=== PATIENT | male | born 1970 | race Caucasian/White ===

== ENCOUNTER 2018-06-18 15:18 | Outpatient (CLI) | payer OTHER | END 2018-06-18 15:19 | disposition home or self-care (01) | LOC: DTY/OP 15:18 | PROVIDERS: ATTEND Family Medicine | DX: E66.01 Morbid (severe) obesity due to excess calories (principal); Z68.42 Body mass index [BMI] 45.0-49.9, adult | CPT/HCPCS: 97802 ==

== ENCOUNTER 2018-07-09 09:08 | Outpatient (CLI) | payer OTHER ==
[2018-07-09 10:21] LABS: ALT (SGPT) 146 U/L (8-55); AST (SGOT) 139 U/L (5-34); Albumin 4.3 g/dL (3.5-5.0); Alkaline Phosphatase 86 U/L (40-150); Anion Gap 16 mmol/L (10-20); BUN (Urea Nitrogen) 17 mg/dL (8.9-20.6); Bilirubin, Direct 0.4 mg/dL (0.1-0.3); Calc. Creatinine Clearance 0 mL/min (70-130); Carbon Dioxide 22 mmol/L (22-29); Chloride 98 mmol/L (98-107); Estimated GFR-MDRD 83; Globulin 4.7 g/dL (2.4-3.5); Glucose 154 mg/dL (70-105); Potassium 3.9 mmol/L (3.5-5.1); Sodium 132 mmol/L (136-145)
[2018-07-09 10:24] LABS: #Basophils 0.1 thou/uL (0.0-0.2); #Eosinphils 0.1 thou/uL (0.0-0.7); #Lymphocytes 2.6 thou/uL (1.20-3.40); #Monocytes 0.6 thou/uL (0.11-0.59); #Neutrophils 6.3 thou/uL (1.40-6.50); %Basophils 1.2 % (0.0-1.0); %Lymphocytes 26.6 % (21.0-51.0); %Monocytes 5.8 % (0.0-10.0); %Neutrophils 65.4 % (42.0-75.0); Hemoglobin 18.1 g/dL (14.0-18.0); Mean Corpuscular HGB CONC 34.5 g/dL (32.0-36.0); Mean Corpuscular Hemoglobin 30.3 pg (27.0-31.0); Mean Corpuscular Volume 87.9 fL (78.0-98.0); Platelet Count 200 thou/uL (130-400); RBC Distribution Width 12.6 % (11.5-14.5); Red Blood Cell (RBC) Count 5.98 mill/uL (4.70-6.10); White Blood Cell (WBC) Count 9.6 thou/uL (4.8-10.8)
[2018-07-09 10:41] LABS: Hemoglobin A1c 6.9 % (4.0-6.0)
--- NOTE | 2018-07-09 14:30 | RAD ---
2 VIEWS CHEST: Date: 07/09/18 COMPARISON: None. HISTORY: Preoperative patient. FINDINGS: Frontal and lateral imaging of the chest demonstrates no pneumothorax, pleural fluid, focal consolida tion, or alveolar edema. No acute osseous abnormality identified. There is mild degenerative change involving the mid thoracic spine with disc space narrowing and ante rior osteophyte formation. IMPRESSION: No acute findings. POS: [facility]
== END 2018-07-09 09:09 | disposition home or self-care (01) ==
LOC: LABBT 09:08
PROVIDERS: ATTEND Surgery
DX: Z01.818 Encounter for other preprocedural examination (principal); E66.01 Morbid (severe) obesity due to excess calories
CPT/HCPCS: 71046; 80053; 80076; 83036; 85025; 93005; 93010

== ENCOUNTER 2018-07-09 09:30 | Inpatient (IN) | payer OTHER ==
[2018-07-09 09:40] VITALS: BMI 46.2
[2018-07-20] MEDS ORDERED: Sterile Water 10 ML VIAL ONE (08:03)
[2018-07-20] MEDS ORDERED: Dexamethasone 20 MG/5 ML VIAL ONE (08:03)
[2018-07-20] MEDS ORDERED: Glycopyrrolate 0.2 MG/ML 5 ML SYRINGE ONE (08:03)
[2018-07-20] MEDS ORDERED: Lidocaine 1% PF 5 ML VIAL ONE (08:03)
[2018-07-20] MEDS ORDERED: Ondansetron PF 4 MG/2 ML Vial ONE (08:03)
[2018-07-20] MEDS ORDERED: PROPOFOL 200 MG/20 ML VIAL ONE (08:03)
[2018-07-20] MEDS ORDERED: Ketorolac Tromethamine 30 MG/ML VIAL ONE (08:03)
[2018-07-20] MEDS ORDERED: CEFAZOLIN 1 GM VIAL ONE (08:03)
[2018-07-20] MEDS ORDERED: Metoclopramide HCl 10 MG/2 ML VIAL ONE (08:03)
[2018-07-20] MEDS ORDERED: ePHEDrine/0.9% NaCl/PF SYRINGE 50 mg/10 ml ONE (08:03)
[2018-07-20] MEDS ORDERED: CEFAZOLIN 2 GM/50 ML BAG ONE (11:46)
[2018-07-20] MEDS ORDERED: Heparin 5,000 UNITS/ML VIAL ONE (11:47)
[2018-07-20] MEDS ORDERED: Bupivacaine/Epinephrine 0.25% 30 ML VIAL ONE (11:53)
[2018-07-20] MEDS ORDERED: Famotidine/PF 20 mg/2ml Vial ONE (11:59)
[2018-07-20] MEDS ORDERED: Fentanyl 100 MCG/2 ML VIAL ONE ×2 (12:00→13:56)
[2018-07-20] MEDS ORDERED: Fentanyl 250 MCG/5 ML VIAL ONE (12:00)
[2018-07-20] MEDS ORDERED: HYDROmorphone 2 MG/ML VIAL SLOW IVP PRN (13:13)
[2018-07-20] MEDS ORDERED: Meperidine HCl/PF 25 MG/ML VIAL SLOW IVP PRN (13:13)
[2018-07-20] MEDS ORDERED: Promethazine HCl 25 MG/ML VIAL IM PRN ×3 (13:13→15:38)
[2018-07-20] MEDS ORDERED: Ondansetron HCl/PF 4 MG/2 ML Vial IVP PRN (13:13)
[2018-07-20] MEDS ORDERED: Promethazine HCl 25 MG/ML VIAL SLOW IVP PRN (13:13)
[2018-07-20] MEDS ORDERED: fentaNYL Citrate/PF 2,000 MCG in Sodium Chloride 0.9% 60 ML IV PRN (14:03)
[2018-07-20] MEDS ORDERED: diphenhydrAMINE 50 MG/ML VIAL IVP PRN ×2 (14:03→15:38)
[2018-07-20] MEDS ORDERED: Zolpidem Tartrate 5 MG TAB PO PRN (14:03)
[2018-07-20] MEDS ORDERED: diphenhydrAMINE 25 MG CAP PO PRN (14:03)
[2018-07-20] MEDS ORDERED: diphenhydrAMINE 50 MG/ML VIAL IM PRN (14:03)
[2018-07-20] MEDS ORDERED: Naloxone HCl 0.4 mg/ml Vial IV PRN (14:03)
[2018-07-20] MEDS ORDERED: Ondansetron PF 4 MG/2 ML Vial IVP PRN ×2 (14:03→15:38)
[2018-07-20] MEDS ORDERED: Ketorolac Tromethamine 30 MG/ML VIAL IVP PRN (14:03)
[2018-07-20] MEDS ORDERED: Communication Order-Pharmacy FS SCH (14:15)
[2018-07-20] MEDS ORDERED: Hydrocodone-Acetamin 15 ML UDCUP PO PRN (15:38)
[2018-07-20] MEDS ORDERED: Dextrose 50% Abboject 50 ML SYRINGE SLOW IVP PRN ×2 (15:38)
[2018-07-20] MEDS ORDERED: hydrALAZINE 20 MG/ML VIAL SLOW IVP PRN (15:38)
[2018-07-20] MEDS ORDERED: HumaLOG 300 UNITS/3 ML VIAL SC PRN (15:38)
[2018-07-20] MEDS ORDERED: Dextrose 5% in Water 1,000 ML IV PRN (15:38)
[2018-07-20] MEDS: Sodium Chloride 0.9% 1,000 ML IV SCH ×2 (16:20→22:33)
[2018-07-20] MEDS ORDERED: Enoxaparin Sodium 40 MG/0.4 ML SYRINGE SC SCH (21:00)
[2018-07-20] MEDS: Losartan 25 MG TAB PO SCH (21:06)
[2018-07-21 08:11] LABS: #Lymphocytes 1.2 thou/uL (1.20-3.40); #Monocytes 0.4 thou/uL (0.11-0.59); #Neutrophils 7.9 thou/uL (1.40-6.50); %Basophils 0.2 % (0.0-1.0); %Eosinophils 0.2 % (0.0-10.0); %Lymphocytes 12.2 % (21.0-51.0); %Monocytes 4.6 % (0.0-10.0); %Neutrophils 82.8 % (42.0-75.0); Hemoglobin 14.6 g/dL (14.0-18.0); Mean Corpuscular HGB CONC 33.6 g/dL (32.0-36.0); Mean Corpuscular Hemoglobin 30.4 pg (27.0-31.0); Mean Corpuscular Volume 90.5 fL (78.0-98.0); Platelet Count 176 thou/uL (130-400); RBC Distribution Width 13.1 % (11.5-14.5); White Blood Cell (WBC) Count 9.5 thou/uL (4.8-10.8)
[2018-07-21 08:21] LABS: Anion Gap 12 mmol/L (10-20); BUN (Urea Nitrogen) 10 mg/dL (8.9-20.6); Calc. Creatinine Clearance 235 mL/min (70-130); Calcium 9.1 mg/dL (7.8-10.44); Carbon Dioxide 28 mmol/L (22-29); Chloride 102 mmol/L (98-107); Estimated GFR-MDRD Greater than 90; Glucose 126 mg/dL (70-105); Potassium 3.9 mmol/L (3.5-5.1); Sodium 138 mmol/L (136-145)
[2018-07-21] MEDS: Sodium Chloride 0.9% 1,000 ML IV SCH (08:38)
[2018-07-21 08:39] VITALS: BP 110/69
[2018-07-21] MEDS: Losartan 25 MG TAB PO SCH (08:39)
[2018-07-21] MEDS ORDERED: Pantoprazole 40 MG VIAL IVP SCH (09:00)
[2018-07-21] MEDS ORDERED: Amlodipine 10 MG TAB PO SCH (09:00)
[2018-07-21 09:12] VITALS: TEMP 97.6
[2018-07-21] MEDS ORDERED: Hydrocodone-Acetamin 15 ML UDCUP PO PRN (10:49)
--- NOTE | 2018-07-23 11:54 | OP ---
DATE OF PROCEDURE: 07/20/2018 PREOPERATIVE DIAGNOSES: 1. Morbid obesity with a body mass index of 46. 2. Hypertension. 3. Diabetes mellitus. POSTOPERATIVE DIAGNOSES: 1. Morbid obesity with a body mass index of 46. 2. Hypertension. 3. Diabetes mellitus. PROCEDURES PERFORMED: Laparoscopic sleeve gastrectomy with [place] staple line reinforcements and 38[place] bougie. ANESTHESIA: General. ESTIMATED BLOOD LOSS: Minimal. COMPLICATIONS: None. SPECIMEN: Stomach. TECHNIQUE: The patient was taken to the operating room and laid supine position on the operating room table. After general anesthetic was obtained, the arms and legs were double strapped to bariatric table. The abdomen was shaved, prepped, and draped in a sterile fashion. OG tube had been used to decompress the stomach. Left subcostal 5-mm Optiview trocar was placed in usual fashion. High-flow pneumoperitoneum was obtained. Left and right abdominal 12-mm ports as well as a right subcostal 5-mm port were placed under direct visualization. A 5-mm incision was made at the xiphoid and the Abiodun was used to raise the liver off the GE junction. The short gastrics were taken down from mid body of the stomach to left jelly of the diaphragm. The left jelly, fundus of the stomach, and angle of His were completely dissected. The short gastrics were taken down to a distance of 6 cm proximal to the pylorus. OG tube was removed and a 38[place] bougie was brought and its tip left in the antrum of the stomach. Multiple loads of the [place] stapling device were used to perform the sleeve. The first was fired up at a distance of 6 cm proximal to the pylorus angled up towards the incisura. Multiple loads were then fired up along the incisura and the stomach was completely transected at the angle of His. The stomach was removed from the left abdominal incision. The fascial defect was closed using GraNee needle and 0 Vicryl tie. No bleeding on the staple line. Bougie was removed and the EGD scope was passed into the esophagus, stomach to the level of the duodenum without obstruction. No air leakage or bleeding through the staple line. No evidence of stenosis or stricture in the stomach. The EGD scope was used to decompress the stomach, it was pulled and removed. Abiodun retractor was removed under direct visualization without bleeding. All incisions were removed under direct visualization without bleeding. All incisions were irrigated using local anesthetic. Vicryl was used to close the fascial defect from the left abdominal incisions. All incisions were irrigated and closed using 4-0 Monocryl and Dermabond. The patient was sent to Recovery in stable condition. All instrument counts, needle counts, and lap counts were correct. Job ID: [id number]
== END 2018-07-21 11:25 | disposition home or self-care (01) | DRG 621 ==
LOC: SURG A 07-20 11:17
PROVIDERS: ADMIT Surgery; ATTEND Surgery
PROC: 0DB64Z3 Excision of Stomach, Percutaneous Endoscopic Approach, Vertical (ICD-10-PCS; principal; 2018-07-20)
DX: E66.01 Morbid (severe) obesity due to excess calories (principal); I10 Essential (primary) hypertension; E11.9 Type 2 diabetes mellitus without complications; Z79.84 Long term (current) use of oral hypoglycemic drugs; Z68.42 Body mass index [BMI] 45.0-49.9, adult; E78.5 Hyperlipidemia, unspecified
CPT/HCPCS: 36415; 36416; 80048; 85025; 88307; 88312; 94760; A4216; C9113; J0131; J0690; J1100; J1644; J1650; J1885; J2001; J2405; J2704; J2765; J3010; J7050; S0028

== ENCOUNTER 2020-02-19 10:42 | Outpatient (CLI) | payer OTHER ==
--- NOTE | 2020-02-19 11:54 | MRI ---
MRI LUMBAR SPINE NONCONTRAST: DATE: 02/19/2020 HISTORY: 49-year-old male with low back pain and ICD-10: "C 84.498A, failed orthopedic implant, initial encoun ter; M 51.36, degenerative lumbar disc; Q 76.2 congenital spondylolisthesis" COMPARISON: None FINDINGS: There are 5 lumbar-type vertebrae. Vertebral body heights are maintained. Despite the history, there is no spondylolisthesis. No high-grade disc space narrowing. Conus medullaris terminates at L1-2. Cauda equina is arranged in a symmetrical, normal distribution throughout the thecal sac. T12-L1:Shallow left-central disc protrusion. No central or neural foraminal stenosis. L1-2:Shallow broad-based disc-osteophyte complex slightly indents thecal sac. No central or neural fo raminal stenosis. L2-3:Small focus of [place] type II endplate marrow change at anterior inferior endplate of L2. No cent ral or neural foraminal stenosis. L3-4:Small focal central disc protrusion indents ventral aspect of thecal sac, contacting, but not di splacing bilateral L4 nerve roots. No high-grade central spinal canal stenosis or high-grade neural foraminal stenosis. Bone marrow edema at L3 and L4 spinous processes, and 1.7 x 0.5 x 0.5 cm fluid co llection between the spinous processes. L4-5:Moderate sized central and bilateral paracentral disc extrusion, slightly larger to the left of midline, deeply indents thecal sac, abuts and mildly laterally displaces bilateral L5 nerve roots, especially the left, minimally posteriorly displacing left sacral nerve roots, causing mild central s gorge canal stenosis and bilateral subarticular zone (lateral recess) stenosis, left greater than right. Mild to moderate bilateral facet DJD. Little or no right neural foraminal stenosis. Mild left neural foraminal stenosis. Similar findings of bone marrow edema at contact points between L4 and L5 spinous processes, plus small fluid collection in between the spinous processes, similar to the L3 -4 level. L5-S1:Right-central focal small to moderate-sized disc herniation extends into the anterior epidural fat, slightly laterally displacing right S1 nerve root. No central spinal canal stenosis. Mild right and mild to moderate left neural foraminal stenosis. Mild bilateral facet DJD. IMPRESSION: 1) moderate size disc extrusion at L4-5, abutting and mildly displacing bilateral nerve roots. 2) right-central disc herniation at L5-S1 abutting and mildly displacing right S1 nerve root. 3) shallow central disc protrusion at L3-4. 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 5) no high-grade central spinal canal stenosis or high-grade neural foraminal stenosis at any level.
== END 2020-02-19 10:43 | disposition home or self-care (01) ==
LOC: TBSIIMAG 10:42
PROVIDERS: ATTEND Physician Assistant
DX: M51.36 Other intervertebral disc degeneration, lumbar region (principal); T84.498A Other mechanical complication of other internal orthopedic devices, implants and grafts, initial encounter; Q76.2 Congenital spondylolisthesis; M51.26 Other intervertebral disc displacement, lumbar region; M51.27 Other intervertebral disc displacement, lumbosacral region; R60.0 Localized edema; M48.26 Kissing spine, lumbar region
CPT/HCPCS: 72148

== ENCOUNTER 2020-04-03 07:01 | Outpatient (CLI) | payer OTHER ==
[2020-04-03 14:42] LABS: Hemoglobin 18.2 g/dL (14.0-18.0); Mean Corpuscular HGB CONC 34.8 g/dL (32.0-36.0); Mean Corpuscular Hemoglobin 32.3 pg (27.0-31.0); Mean Corpuscular Volume 92.8 fL (78.0-98.0); Mean Platelet Volume 7.7 fL (7.4-10.4); Platelet Count 176 thou/uL (130-400); RBC Distribution Width 11.7 % (11.5-14.5); Red Blood Cell (RBC) Count 5.64 mill/uL (4.70-6.10); White Blood Cell (WBC) Count 6.8 thou/uL (4.8-10.8)
[2020-04-03 16:03] LABS: Anion Gap 13 mmol/L (10-20); BUN (Urea Nitrogen) 13 mg/dL (8.9-20.6); Calc. Creatinine Clearance 0 mL/min (70-130); Calcium 9.1 mg/dL (7.8-10.44); Carbon Dioxide 26 mmol/L (22-29); Chloride 103 mmol/L (98-107); Estimated GFR-MDRD Greater than 90; Glucose 85 mg/dL (70-105); Potassium 4.3 mmol/L (3.5-5.1); Sodium 138 mmol/L (136-145)
[2020-04-04 12:19] LABS: SARS-CoV-2 MS2 Positive; SARS-CoV-2 N Gene Negative; SARS-CoV-2 S Gene Negative; SARS-CoV-2 by NAA Not Detected (NotDetected); SARS-CoV-2 orf1ab Negative
== END 2020-04-03 07:02 | disposition home or self-care (01) ==
LOC: LABBT 07:01
PROVIDERS: ATTEND Neurological Surgery
DX: Z01.818 Encounter for other preprocedural examination (principal); Z20.828 Contact with and (suspected) exposure to other viral communicable diseases; M54.16 Radiculopathy, lumbar region
CPT/HCPCS: 80048; 85027; 87635; 93005; 93010; U0003

== ENCOUNTER 2020-04-08 06:34 | Day surgery (SDC) | payer OTHER ==
[2020-04-03 11:25] VITALS: BMI 35.2
[2020-04-08] MEDS ORDERED: Fentanyl 100 MCG/2 ML VIAL ONE ×3 (09:12→11:32)
[2020-04-08] MEDS ORDERED: Midazolam HCl 2 mg/2 ml Vial ONE (09:12)
[2020-04-08] MEDS ORDERED: Rocuronium Bromide 10 MG/ML (10ML VIAL) ONE (10:25)
[2020-04-08] MEDS ORDERED: Ondansetron PF 4 MG/2 ML Vial ONE (10:25)
[2020-04-08] MEDS ORDERED: Ketorolac Tromethamine 30 MG/ML VIAL ONE (10:25)
[2020-04-08] MEDS ORDERED: Lidocaine 1% PF 5 ML VIAL ONE (10:25)
[2020-04-08] MEDS ORDERED: EPHEDRINE 25 MG/5 ML SYRINGE ONE (10:25)
[2020-04-08] MEDS ORDERED: PROPOFOL 200 MG/20 ML VIAL ONE (10:25)
[2020-04-08] MEDS ORDERED: Glycopyrrolate 0.2 MG/ML 5 ML SYRINGE ONE (10:25)
[2020-04-08] MEDS ORDERED: Dexamethasone 20 MG/5 ML VIAL ONE (10:25)
[2020-04-08] MEDS ORDERED: diphenhydrAMINE 50 MG/ML VIAL ONE (10:25)
--- NOTE | 2020-04-08 10:44 | OP ---
DATE OF PROCEDURE: 04/08/2020 [employer]PHIRE STYLUS GRINDER: Kasie Mcduffie PA-C PROCEDURE PERFORMED: Left L4-L5 microdiskectomy. DESCRIPTION OF PROCEDURE: The patient was brought to the operating room and intubated. He was rolled in a prone position on gel-filled chest rolls. An incision was made exposing L4-L5 on the left and the level was confirmed by x-ray. We performed left L4-L5 hemilaminectomy, removed via ligament, identified the left L5 nerve root and beneath this found a bulging disk. This was incised and debrided in multiple fragments with particular attention to the central disk. A complete decompression was achieved. The wound was then extensively irrigated and MAC hemostasis was secured. Vancomycin powder was applied and the wound was then closed in anatomic layers. Job ID: [id number]
[2020-04-08] MEDS ORDERED: Tamsulosin HCl 0.4 MG CAP ONE (11:07)
[2020-04-08] MEDS ORDERED: HYDROcodone/Acetaminophen 5/325 mg Tablet ONE (13:46)
== END 2020-04-08 14:10 | disposition home or self-care (01) ==
LOC: SDC 06:34
PROVIDERS: ATTEND Neurological Surgery
PROC: 0ST20ZZ Resection of Lumbar Vertebral Disc, Open Approach (ICD-10-PCS; principal; 2020-04-08)
DX: M51.16 Intervertebral disc disorders with radiculopathy, lumbar region (principal)
CPT/HCPCS: 76000; J0690; J1100; J1200; J1885; J2250; J2405; J2704; J3010; J3370

== ENCOUNTER 2021-12-24 16:06 | Inpatient (IN) | payer OTHER ==
[2021-12-24] MEDS ORDERED: Iopamidol-370 76% 500 ML 1 ML ONE (16:11)
[2021-12-24 16:25] LABS: #Basophils 0.1 thou/uL (0.0-0.2); #Eosinphils 0.1 thou/uL (0.0-0.7); #Lymphocytes 1.6 thou/uL (1.20-3.40); #Monocytes 0.6 thou/uL (0.11-0.59); #Neutrophils 9.1 thou/uL (1.40-6.50); %Basophils 0.5 % (0.0-1.0); %Eosinophils 0.8 % (0.0-10.0); %Lymphocytes 13.9 % (21.0-51.0); %Monocytes 5.3 % (0.0-10.0); %Neutrophils 79.6 % (42.0-75.0); Hemoglobin 17.4 g/dL (14.0-18.0); Mean Corpuscular HGB CONC 33.8 g/dL (32.0-36.0); Mean Corpuscular Hemoglobin 32.8 pg (27.0-31.0); Mean Platelet Volume 7.6 fL (7.4-10.4); Platelet Count 198 thou/uL (130-400); RBC Distribution Width 13.3 % (11.5-14.5); White Blood Cell (WBC) Count 11.4 thou/uL (4.8-10.8)
[2021-12-24 16:41] LABS: INR-International Normal Ratio 1.1; Prothrombin Time 14.6 sec (12.0-14.7)
[2021-12-24 16:42] LABS: PTT 26.6 sec (22.9-36.1)
[2021-12-24] MEDS ORDERED: Lidocaine 1% PF 5 ML VIAL ONE ×2 (16:43→16:52)
[2021-12-24] MEDS ORDERED: Bupivacaine 0.25% 10 ML VIAL ONE (16:44)
[2021-12-24] MEDS ORDERED: Lidocaine 2% PF 5 ML VIAL ONE (16:45)
[2021-12-24 16:54] LABS: ALT (SGPT) 144 U/L (8-55); AST (SGOT) 208 U/L (5-34); Albumin 3.7 g/dL (3.5-5.0); Alkaline Phosphatase 93 U/L (40-110); Anion Gap 15 mmol/L (10-20); BUN (Urea Nitrogen) 6 mg/dL (8.4-25.7); Bilirubin, Total 0.7 mg/dL (0.2-1.2); Calc. Creatinine Clearance 0 mL/min (70-130); Calcium 8.4 mg/dL (7.8-10.44); Carbon Dioxide 22 mmol/L (22-29); Chloride 108 mmol/L (98-107); Globulin 3.4 g/dL (2.4-3.5); Glucose 142 mg/dL (70-105); Lipase 150 U/L (8-78); Potassium 3.4 mmol/L (3.5-5.1); Protein, Total 7.1 g/dL (6.0-8.3); Sodium 142 mmol/L (136-145)
[2021-12-24] MEDS ORDERED: Tranexamic Acid 1,000 MG/10 ML VIAL ONE (16:56)
[2021-12-24 17:00] LABS: Bacteria/HPF None Seen HPF (None Seen); Bilirubin Negative (Negative); Blood, Urine 3+ (Negative); Clarity Clear (Clear); Glucose, Urine (Dipstick) Normal (Negative); Ketone, Urine Negative (Negative); Leukocyte Negative Leu/uL (Negative); Nitrite Negative (Negative); Protein, Urine (Dipstick) 70 mg/dL (Neg-Trace); Specific Gravity, Urine 1.007 (1.002-1.036); Squamous Epithelial None Seen HPF (0-3); Urobilinogen Normal mg/dL (Less than 2); WBC/HPF 0-3 HPF (0-3); pH, Urine 5.5 (5.0-9.0)
[2021-12-24] MEDS ORDERED: Ketorolac Tromethamine 30 MG/ML VIAL ONE (17:05)
[2021-12-24 17:06] LABS: Amphetamine Not Detected (NotDetected); Barbiturates Screen Not Detected (NotDetected); Benzodiazepine Screen Not Detected (NotDetected); Cocaine Metabolite Screen Not Detected (NotDetected); Methadone Not Detected (NotDetected); Methamphetamine Not Detected (NotDetected); Opiate Screen Not Detected (NotDetected); Oxycodone Screen Not Detected (NotDetected); Phencyclidine (PCP) Not Detected (NotDetected); THC/Cannabinoid Screen Not Detected (NotDetected); Tricyclic Screen Not Detected (NotDetected)
[2021-12-24] MEDS ORDERED: Naloxone HCl 0.4 mg/ml Vial IV PRN (17:08)
[2021-12-24] MEDS ORDERED: Ondansetron PF 4 MG/2 ML Vial IVP PRN (17:08)
[2021-12-24] MEDS ORDERED: HYDROmorphone 10 mg/100 ml CADD IVPB PRN (17:08)
[2021-12-24] MEDS ORDERED: Promethazine HCl 25 MG/ML VIAL IM PRN (17:08)
[2021-12-24] MEDS ORDERED: diphenhydrAMINE 50 MG/ML VIAL IM PRN (17:08)
[2021-12-24] MEDS ORDERED: Dextrose 50% Abboject 50 ML SYRINGE SLOW IVP PRN (17:08)
[2021-12-24] MEDS ORDERED: diphenhydrAMINE 25 MG CAP PO PRN (17:08)
[2021-12-24] MEDS ORDERED: Dextrose 5% in Water 1,000 ML IV PRN (17:08)
[2021-12-24] MEDS ORDERED: Insulin Regular 300 UNITS/3 ML VIAL SC PRN (17:08)
[2021-12-24] MEDS ORDERED: diphenhydrAMINE 50 MG/ML VIAL IVP PRN (17:08)
[2021-12-24] MEDS ORDERED: Communication Order-Pharmacy FS PRN (17:15)
[2021-12-24 17:29] LABS: CKMB 4.1 ng/mL (0-6.6)
[2021-12-24 18:12] LABS: SARS-CoV-2 NAA Rapid Test Not Detected (NotDetected)
[2021-12-24] MEDS: Ketorolac Tromethamine 30 MG/ML VIAL IVP SCH ×2 (18:47→23:27)
[2021-12-24] MEDS: Acetaminophen 325 MG TAB PO SCH ×2 (18:47→23:28)
[2021-12-24] MEDS: Sodium Chloride 0.9% 1,000 ML IV SCH (18:48)
[2021-12-24 19:19] LABS: Lactic Acid 2.4 mmol/L (0.5-2.2)
[2021-12-24] MEDS: Famotidine/PF 20 mg/2ml Vial SLOW IVP SCH (20:37)
[2021-12-24] MEDS: Enoxaparin Sodium 40 MG/0.4 ML SYRINGE SC SCH (20:37)
[2021-12-25] MEDS: Sodium Chloride 0.9% 1,000 ML IV SCH ×4 (02:38→17:28)
[2021-12-25] MEDS ORDERED: Sodium Chloride 0.9% 1,000 ML IV SCH (03:45)
[2021-12-25 04:02] LABS: #Basophils 0.1 thou/uL (0.0-0.2); #Lymphocytes 1.6 thou/uL (1.20-3.40); #Monocytes 0.7 thou/uL (0.11-0.59); #Neutrophils 6.9 thou/uL (1.40-6.50); %Basophils 0.6 % (0.0-1.0); %Eosinophils 0.2 % (0.0-10.0); %Lymphocytes 17.3 % (21.0-51.0); %Monocytes 7.9 % (0.0-10.0); %Neutrophils 74.1 % (42.0-75.0); Hemoglobin 15.3 g/dL (14.0-18.0); Mean Corpuscular HGB CONC 33.5 g/dL (32.0-36.0); Mean Corpuscular Hemoglobin 32.7 pg (27.0-31.0); Mean Corpuscular Volume 97.7 fL (78.0-98.0); Platelet Count 146 thou/uL (130-400); RBC Distribution Width 12.8 % (11.5-14.5); Red Blood Cell (RBC) Count 4.67 mill/uL (4.70-6.10); White Blood Cell (WBC) Count 9.3 thou/uL (4.8-10.8)
[2021-12-25 04:13] LABS: Lactic Acid 2.2 mmol/L (0.5-2.2)
[2021-12-25 04:24] LABS: Phosphorus 4.1 mg/dL (2.3-4.7)
[2021-12-25 04:27] LABS: ALT (SGPT) 110 U/L (8-55); AST (SGOT) 122 U/L (5-34); Albumin 3.3 g/dL (3.5-5.0); Alkaline Phosphatase 67 U/L (40-110); Anion Gap 11 mmol/L (10-20); BUN (Urea Nitrogen) 6 mg/dL (8.4-25.7); Bilirubin, Total 0.8 mg/dL (0.2-1.2); Calc. Creatinine Clearance 174 mL/min (70-130); Calcium 7.8 mg/dL (7.8-10.44); Carbon Dioxide 28 mmol/L (22-29); Chloride 107 mmol/L (98-107); Globulin 2.7 g/dL (2.4-3.5); Glucose 95 mg/dL (70-105); Magnesium 1.6 mg/dL (1.6-2.6); Potassium 3.8 mmol/L (3.5-5.1); Sodium 142 mmol/L (136-145)
[2021-12-25 04:35] LABS: CKMB 9.7 ng/mL (0-6.6)
[2021-12-25] MEDS: Acetaminophen 325 MG TAB PO SCH ×3 (05:16→17:28)
[2021-12-25] MEDS: Ketorolac Tromethamine 30 MG/ML VIAL IVP SCH ×4 (05:17→23:08)
[2021-12-25] MEDS: Enoxaparin Sodium 40 MG/0.4 ML SYRINGE SC SCH ×2 (08:29→20:24)
[2021-12-25] MEDS: Famotidine/PF 20 mg/2ml Vial SLOW IVP SCH ×2 (08:29→20:23)
[2021-12-25 09:21] LABS: Troponin I 0.046 ng/mL (< 0.028)
[2021-12-25] MEDS ORDERED: Amlodipine 5 MG TAB PO SCH (11:15)
[2021-12-25] MEDS: Senokot S 8.6-50 MG TAB PO SCH ×2 (11:34→20:22)
[2021-12-25] MEDS: Polyethylene Glycol 3350 17 GM Packet PO SCH (11:34)
[2021-12-25] MEDS: traMADol HCl 50 MG TAB PO SCH ×3 (11:37→23:08)
[2021-12-25] MEDS: Gabapentin 100 MG CAP PO SCH ×2 (14:22→20:22)
[2021-12-25] MEDS: Morphine 2 MG/ML VIAL SLOW IVP PRN (14:23)
[2021-12-25] MEDS ORDERED: tiZANidine HCl 4 MG TAB PO PRN (16:14)
[2021-12-25] MEDS ORDERED: Cyclobenzaprine 10 MG TAB PO PRN (18:44)
[2021-12-25] MEDS: Acetaminophen 500 MG TAB PO SCH (20:21)
[2021-12-25] MEDS ORDERED: tiZANidine HCl 4 MG TAB PO SCH (21:00)
[2021-12-25] MEDS: cloNIDine 0.1 MG TAB PO SCH (23:08)
[2021-12-26] MEDS: Sodium Chloride 0.9% 1,000 ML IV SCH (00:24)
[2021-12-26] MEDS: Acetaminophen 500 MG TAB PO SCH ×4 (02:07→20:18)
[2021-12-26] MEDS: Morphine 2 MG/ML VIAL SLOW IVP PRN (02:07)
[2021-12-26] MEDS: cloNIDine 0.1 MG TAB PO SCH ×3 (05:34→18:29)
[2021-12-26] MEDS: traMADol HCl 50 MG TAB PO SCH ×3 (05:34→18:28)
[2021-12-26] MEDS: Ketorolac Tromethamine 30 MG/ML VIAL IVP SCH (05:35)
[2021-12-26 06:01] LABS: #Lymphocytes 1.1 thou/uL (1.20-3.40); #Monocytes 0.5 thou/uL (0.11-0.59); #Neutrophils 5.8 thou/uL (1.40-6.50); %Basophils 0.2 % (0.0-1.0); %Eosinophils 0.6 % (0.0-10.0); %Lymphocytes 14.7 % (21.0-51.0); %Monocytes 6.2 % (0.0-10.0); %Neutrophils 78.3 % (42.0-75.0); Hemoglobin 13.7 g/dL (14.0-18.0); Mean Corpuscular HGB CONC 34.2 g/dL (32.0-36.0); Mean Corpuscular Hemoglobin 33.2 pg (27.0-31.0); Mean Corpuscular Volume 97.1 fL (78.0-98.0); Mean Platelet Volume 6.8 fL (7.4-10.4); Platelet Count 123 thou/uL (130-400); RBC Distribution Width 12.5 % (11.5-14.5); Red Blood Cell (RBC) Count 4.12 mill/uL (4.70-6.10); White Blood Cell (WBC) Count 7.5 thou/uL (4.8-10.8)
[2021-12-26 06:24] LABS: Anion Gap 7 mmol/L (10-20); BUN (Urea Nitrogen) 7 mg/dL (8.4-25.7); CK (CPK) 1471 U/L (30-200); Calc. Creatinine Clearance 217 mL/min (70-130); Calcium 8.1 mg/dL (7.8-10.44); Carbon Dioxide 31 mmol/L (22-29); Chloride 105 mmol/L (98-107); Glucose 99 mg/dL (70-105); Magnesium 1.6 mg/dL (1.6-2.6); Phosphorus 1.8 mg/dL (2.3-4.7); Potassium 3.8 mmol/L (3.5-5.1); Sodium 139 mmol/L (136-145)
[2021-12-26] MEDS ORDERED: Magnesium 2 GM/50 ML(in water) 3 GM in Premix Bag 1 BAG IVPB SCH (07:30)
[2021-12-26] MEDS ORDERED: Potassium Phosphate 30 MMOL, Magnesium Sulfate 3 GM in Sodium Chloride 0.9% 250 ML 250 ML IVPB SCH (07:45)
[2021-12-26] MEDS: Amlodipine 5 MG TAB PO SCH (08:55)
[2021-12-26] MEDS: Senokot S 8.6-50 MG TAB PO SCH ×2 (08:55→19:57)
[2021-12-26] MEDS: Famotidine/PF 20 mg/2ml Vial SLOW IVP SCH ×2 (08:55→19:58)
[2021-12-26] MEDS: Polyethylene Glycol 3350 17 GM Packet PO SCH (08:55)
[2021-12-26] MEDS: Enoxaparin Sodium 40 MG/0.4 ML SYRINGE SC SCH ×2 (08:55→19:57)
[2021-12-26] MEDS: Gabapentin 100 MG CAP PO SCH (08:56)
[2021-12-26] MEDS: Ibuprofen 200 MG TAB PO SCH ×2 (14:44→21:50)
[2021-12-26] MEDS: Pregabalin 50 MG CAP PO SCH (19:59)
[2021-12-27] MEDS: traMADol HCl 50 MG TAB PO SCH ×4 (00:31→17:51)
[2021-12-27] MEDS: cloNIDine 0.1 MG TAB PO SCH ×3 (00:32→11:47)
[2021-12-27] MEDS: Acetaminophen 500 MG TAB PO SCH ×4 (03:22→21:14)
[2021-12-27] MEDS: Ibuprofen 200 MG TAB PO SCH ×3 (05:39→21:15)
[2021-12-27 05:52] VITALS: BMI 38.7
[2021-12-27 07:07] LABS: Anion Gap 11 mmol/L (10-20); BUN (Urea Nitrogen) 6 mg/dL (8.4-25.7); Calc. Creatinine Clearance 251 mL/min (70-130); Calcium 8.2 mg/dL (7.8-10.44); Carbon Dioxide 21 mmol/L (22-29); Chloride 108 mmol/L (98-107); Glucose 124 mg/dL (70-105); Magnesium 1.9 mg/dL (1.6-2.6); Potassium 4.4 mmol/L (3.5-5.1); Sodium 136 mmol/L (136-145)
[2021-12-27] MEDS ORDERED: Sodium Phosphate 30 MMOL in Sodium Chloride 0.9% 250 ML 250 ML IVPB SCH (09:00)
[2021-12-27] MEDS: Famotidine/PF 20 mg/2ml Vial SLOW IVP SCH ×2 (09:05→21:16)
[2021-12-27] MEDS: Enoxaparin Sodium 40 MG/0.4 ML SYRINGE SC SCH ×2 (09:05→21:14)
[2021-12-27] MEDS: Amlodipine 5 MG TAB PO SCH (09:05)
[2021-12-27] MEDS: Pregabalin 50 MG CAP PO SCH ×2 (09:10→21:15)
[2021-12-27] MEDS: Polyethylene Glycol 3350 17 GM Packet PO SCH (09:13)
[2021-12-27] MEDS: Senokot S 8.6-50 MG TAB PO SCH ×2 (09:13→21:16)
[2021-12-28] MEDS: Acetaminophen 500 MG TAB PO SCH ×4 (02:17→20:33)
[2021-12-28] MEDS: Ibuprofen 200 MG TAB PO SCH ×3 (05:49→23:17)
[2021-12-28] MEDS: traMADol HCl 50 MG TAB PO SCH ×5 (05:50→23:17)
[2021-12-28 06:15] LABS: #Eosinphils 0.2 thou/uL (0.0-0.7); #Lymphocytes 1.7 thou/uL (1.20-3.40); #Monocytes 0.6 thou/uL (0.11-0.59); #Neutrophils 6.9 thou/uL (1.40-6.50); %Basophils 0.4 % (0.0-1.0); %Eosinophils 1.8 % (0.0-10.0); %Lymphocytes 17.9 % (21.0-51.0); %Monocytes 6.3 % (0.0-10.0); %Neutrophils 73.6 % (42.0-75.0); Hemoglobin 14.5 g/dL (14.0-18.0); Mean Corpuscular Hemoglobin 33.1 pg (27.0-31.0); Mean Corpuscular Volume 97.5 fL (78.0-98.0); Mean Platelet Volume 7.3 fL (7.4-10.4); Platelet Count 148 thou/uL (130-400); RBC Distribution Width 12.7 % (11.5-14.5); Red Blood Cell (RBC) Count 4.38 mill/uL (4.70-6.10); White Blood Cell (WBC) Count 9.4 thou/uL (4.8-10.8)
[2021-12-28] MEDS ORDERED: Sodium Phosphate 30 MMOL in Sodium Chloride 0.9% 250 ML 250 ML IVPB SCH (08:00)
[2021-12-28] MEDS ORDERED: ceFAZolin (BATCH) 2 GM in Premix Bag 1 BAG IVPB SCH (08:45)
[2021-12-28] MEDS: Famotidine 20 MG TAB PO SCH ×2 (09:10→20:34)
[2021-12-28] MEDS: Enoxaparin Sodium 40 MG/0.4 ML SYRINGE SC SCH ×2 (09:10→20:33)
[2021-12-28] MEDS: Amlodipine 5 MG TAB PO SCH (09:10)
[2021-12-28] MEDS: Polyethylene Glycol 3350 17 GM Packet PO SCH (09:11)
[2021-12-28] MEDS: Senokot S 8.6-50 MG TAB PO SCH ×2 (09:11→20:34)
[2021-12-28] MEDS: Pregabalin 50 MG CAP PO SCH ×2 (09:11→20:34)
[2021-12-28] MEDS ORDERED: Morphine 2 MG/ML VIAL SLOW IVP PRN (09:35)
[2021-12-28] MEDS: Nystatin 500,000 UNITS/5 ML UDCUP SSW SCH ×3 (10:40→20:34)
[2021-12-28] MEDS ORDERED: Morphine 4 MG/ML VIAL SLOW IVP PRN (12:12)
[2021-12-28] MEDS ORDERED: Gabapentin 300 MG CAP PO SCH (15:00)
[2021-12-28] MEDS ORDERED: fentaNYL Citrate/PF 100 MCG/2 ML SYRINGE ONE (16:08)
[2021-12-28] MEDS ORDERED: HYDROmorphone 0.5 MG/0.5 ML SYRINGE ONE (16:08)
[2021-12-28] MEDS ORDERED: Sodium Chloride 0.9% 100 ML ONE (16:10)
[2021-12-28] MEDS ORDERED: CEFAZOLIN 2 GM VIAL ONE (16:10)
[2021-12-28] MEDS ORDERED: Rocuronium Bromide 10 MG/ML (10ML VIAL) ONE (16:16)
[2021-12-28] MEDS ORDERED: Ondansetron PF 4 MG/2 ML Vial ONE ×2 (16:16→16:42)
[2021-12-28] MEDS ORDERED: PHENYLEPHRINE-NS 100 MCG/ML 10 ML SYRINGE ONE ×2 (16:16→16:45)
[2021-12-28] MEDS ORDERED: Lidocaine 1% PF 5 ML VIAL ONE (16:16)
[2021-12-28] MEDS ORDERED: PROPOFOL 200 MG/20 ML VIAL ONE (16:16)
[2021-12-28] MEDS ORDERED: Dexamethasone 20 MG/5 ML VIAL ONE (16:16)
[2021-12-28] MEDS ORDERED: Ketorolac Tromethamine 30 MG/ML VIAL ONE ×2 (16:16→16:42)
[2021-12-28] MEDS ORDERED: Bupivacaine PF 0.5% 30 ML VIAL ONE (16:44)
[2021-12-28] MEDS ORDERED: Lidocaine 1% w/Epinephrine 1:100K 20 ML VIAL ONE (16:44)
[2021-12-28] MEDS ORDERED: Propofol 1,000 MG/100 ML VIAL IV ONE (17:16)
[2021-12-28] MEDS ORDERED: Meperidine HCl/PF 25 MG/ML VIAL SLOW IVP PRN ×2 (17:47)
[2021-12-28] MEDS ORDERED: Promethazine HCl 25 MG/ML VIAL IM PRN (17:47)
[2021-12-28] MEDS ORDERED: Ketorolac Tromethamine 30 MG/ML VIAL IVP PRN (17:47)
[2021-12-28] MEDS ORDERED: Ondansetron HCl/PF 4 MG/2 ML Vial IVP PRN (17:47)
[2021-12-28] MEDS ORDERED: Promethazine HCl 25 MG/ML VIAL IVPB PRN (17:47)
[2021-12-28] MEDS ORDERED: HYDROmorphone 2 MG/ML VIAL SLOW IVP PRN (17:47)
[2021-12-28] MEDS ORDERED: Fentanyl 100 MCG/2 ML VIAL ONE (18:04)
[2021-12-28] MEDS: CEFAZOLIN 2 GM in Sodium Chloride 0.9% 100 ML IVPB SCH (23:17)
[2021-12-29] MEDS: Acetaminophen 500 MG TAB PO SCH ×3 (01:45→13:30)
[2021-12-29] MEDS: Ibuprofen 200 MG TAB PO SCH ×2 (05:36→13:30)
[2021-12-29] MEDS: traMADol HCl 50 MG TAB PO SCH ×2 (05:36→11:47)
[2021-12-29 05:37] LABS: #Lymphocytes 0.8 thou/uL (1.20-3.40); #Monocytes 0.3 thou/uL (0.11-0.59); #Neutrophils 10.1 thou/uL (1.40-6.50); %Eosinophils 0.1 % (0.0-10.0); %Lymphocytes 7.4 % (21.0-51.0); %Monocytes 2.8 % (0.0-10.0); %Neutrophils 89.7 % (42.0-75.0); Hemoglobin 13.9 g/dL (14.0-18.0); Mean Corpuscular HGB CONC 34.6 g/dL (32.0-36.0); Mean Corpuscular Hemoglobin 33.4 pg (27.0-31.0); Mean Corpuscular Volume 96.7 fL (78.0-98.0); Mean Platelet Volume 6.9 fL (7.4-10.4); Platelet Count 174 thou/uL (130-400); RBC Distribution Width 12.5 % (11.5-14.5); Red Blood Cell (RBC) Count 4.16 mill/uL (4.70-6.10); White Blood Cell (WBC) Count 11.3 thou/uL (4.8-10.8)
[2021-12-29 06:17] LABS: Anion Gap 11 mmol/L (10-20); BUN (Urea Nitrogen) 9 mg/dL (8.4-25.7); Calc. Creatinine Clearance 234 mL/min (70-130); Calcium 8.7 mg/dL (7.8-10.44); Carbon Dioxide 26 mmol/L (22-29); Chloride 105 mmol/L (98-107); Glucose 143 mg/dL (70-105); Magnesium 1.9 mg/dL (1.6-2.6); Phosphorus 2.5 mg/dL (2.3-4.7); Potassium 4.2 mmol/L (3.5-5.1); Sodium 138 mmol/L (136-145)
[2021-12-29] MEDS ORDERED: PHOS-NAK 1 PKT PACK PO SCH (07:45)
[2021-12-29] MEDS: CEFAZOLIN 2 GM in Sodium Chloride 0.9% 100 ML IVPB SCH (09:31)
[2021-12-29] MEDS: Amlodipine 5 MG TAB PO SCH (09:32)
[2021-12-29] MEDS: Enoxaparin Sodium 40 MG/0.4 ML SYRINGE SC SCH (09:32)
[2021-12-29] MEDS: Famotidine 20 MG TAB PO SCH (09:32)
[2021-12-29] MEDS: Pregabalin 50 MG CAP PO SCH (09:33)
[2021-12-29] MEDS: Polyethylene Glycol 3350 17 GM Packet PO SCH (09:33)
[2021-12-29] MEDS: Nystatin 500,000 UNITS/5 ML UDCUP SSW SCH ×2 (09:33→13:19)
[2021-12-29] MEDS: Senokot S 8.6-50 MG TAB PO SCH (09:33)
[2021-12-29 11:31] VITALS: BP 137/80; TEMP 98.3
== END 2021-12-29 14:10 | disposition home or self-care (01) | DRG 957 ==
LOC: ERS 16:06 → CCU 17:18 → SURG B 12-25 10:00
PROVIDERS: ADMIT Surgery; ATTEND Surgery
PROC: 0W9930Z Drainage of Right Pleural Cavity with Drainage Device, Percutaneous Approach (ICD-10-PCS; principal; 2021-12-24)
PROC: 0PS904Z Reposition Right Clavicle with Internal Fixation Device, Open Approach (ICD-10-PCS; 2021-12-28)
DX: S27.0XXA Traumatic pneumothorax, initial encounter (principal); Z20.822 Contact with and (suspected) exposure to COVID-19; S36.115A Moderate laceration of liver, initial encounter; S06.339A Contusion and laceration of cerebrum, unspecified, with loss of consciousness of unspecified duration, initial encounter; R40.2111 Coma scale, eyes open, never, in the field [EMT or ambulance]; R40.2221 Coma scale, best verbal response, incomprehensible words, in the field [EMT or ambulance]; R40.2341 Coma scale, best motor response, flexion withdrawal, in the field [EMT or ambulance]; S22.41XA Multiple fractures of ribs, right side, initial encounter for closed fracture; S06.0X9A Concussion with loss of consciousness of unspecified duration, initial encounter; S27.322A Contusion of lung, bilateral, initial encounter; S36.892A Contusion of other intra-abdominal organs, initial encounter; S36.420A Contusion of duodenum, initial encounter; E87.2 Acidosis; S42.001A Fracture of unspecified part of right clavicle, initial encounter for closed fracture; T79.7XXA Traumatic subcutaneous emphysema, initial encounter; E87.6 Hypokalemia; S42.101A Fracture of unspecified part of scapula, right shoulder, initial encounter for closed fracture; R40.2362 Coma scale, best motor response, obeys commands, at arrival to emergency department; R40.2132 Coma scale, eyes open, to sound, at arrival to emergency department; R40.2242 Coma scale, best verbal response, confused conversation, at arrival to emergency department; E66.01 Morbid (severe) obesity due to excess calories; E83.42 Hypomagnesemia; E83.39 Other disorders of phosphorus metabolism; Z68.38 Body mass index [BMI] 38.0-38.9, adult; Z98.890 Other specified postprocedural states; Z82.49 Family history of ischemic heart disease and other diseases of the circulatory system; V23.4XXA Motorcycle driver injured in collision with car, pick-up truck or van in traffic accident, initial encounter; Y92.410 Unspecified street and highway as the place of occurrence of the external cause
CPT/HCPCS: 36415; 36416; 70450; 71045; 71260; 72125; 74177; 76000; 80048; 80053; 80306; 81003; 81015; 82550; 82553; 83605; 83690; 83735; 84100; 84484; 85025; 85610; 85730; 86850; 86900; 86901; 93005; 94640; 96374; 96375; C1713; C1874; G0390; J1100; J1170; J1650; J1885; J2001; J2270; J2405; J2704; J3010; J3475; J3490; J7050; J7620; Q9967; S0020; S0028; U0002

== ENCOUNTER 2022-01-13 09:17 | Outpatient (CLI) | payer OTHER | END 2022-01-13 09:18 | disposition home or self-care (01) | LOC: BICRAD 09:17 | PROVIDERS: ATTEND Surgery | DX: J93.9 Pneumothorax, unspecified (principal) | CPT/HCPCS: 71046 ==

== ENCOUNTER 2022-01-13 11:24 | Outpatient (CLI) | payer OTHER | END 2022-01-13 11:25 | disposition home or self-care (01) | LOC: LABBT 11:24 | PROVIDERS: ATTEND Orthopaedic Surgery | DX: S42.001A Fracture of unspecified part of right clavicle, initial encounter for closed fracture (principal); Z20.822 Contact with and (suspected) exposure to COVID-19 | CPT/HCPCS: U0003; U0005 ==

== ENCOUNTER 2022-01-14 06:01 | Day surgery (SDC) | payer OTHER ==
[2022-01-13 11:55] VITALS: BMI 36.6
[2022-01-14] MEDS ORDERED: VANCOMYCIN 2 GRAM/500 ML BAG 2 GM in Premix Bag 1 BAG IVPB SCH (06:30)
[2022-01-14] MEDS ORDERED: Sodium Chloride 0.9% 100 ML ONE (07:21)
[2022-01-14] MEDS ORDERED: CEFAZOLIN 2 GM VIAL ONE (07:21)
[2022-01-14] MEDS ORDERED: Midazolam HCl 2 mg/2 ml Vial ONE (07:45)
[2022-01-14] MEDS ORDERED: fentaNYL Citrate/PF 100 MCG/2 ML SYRINGE ONE (07:45)
[2022-01-14] MEDS ORDERED: Ondansetron PF 4 MG/2 ML Vial ONE (07:49)
[2022-01-14] MEDS ORDERED: PROPOFOL 200 MG/20 ML VIAL ONE (07:49)
[2022-01-14] MEDS ORDERED: Lidocaine 1% PF 5 ML VIAL ONE (07:49)
[2022-01-14] MEDS ORDERED: Fentanyl 100 MCG/2 ML VIAL ONE (09:11)
== END 2022-01-14 10:12 | disposition home or self-care (01) ==
LOC: SDC 06:01
PROVIDERS: ATTEND Orthopaedic Surgery
PROC: 0JB60ZZ Excision of Chest Subcutaneous Tissue and Fascia, Open Approach (ICD-10-PCS; principal; 2022-01-14)
DX: T81.42XA Infection following a procedure, deep incisional surgical site, initial encounter (principal); I10 Essential (primary) hypertension; R73.03 Prediabetes; E78.5 Hyperlipidemia, unspecified; I25.10 Atherosclerotic heart disease of native coronary artery without angina pectoris; Z79.1 Long term (current) use of non-steroidal anti-inflammatories (NSAID); Z79.899 Other long term (current) drug therapy; Z98.84 Bariatric surgery status
CPT/HCPCS: 87070; 87077; 87186; 87205; J0690; J2250; J2405; J2704; J3010; J3370; J3490

== ENCOUNTER 2022-02-10 12:06 | Inpatient (IN) | payer OTHER ==
[2022-02-09 12:35] LABS: Mean Corpuscular Hemoglobin 30.7 pg (27.0-33.0); Mean Corpuscular Volume 87.7 fl (81.2-95.1); Mean Platelet Volume 8.8 fl (7.4-10.4); Platelet Count 244 10x3/uL (150-450); RBC Distribution Width 13.2 % (11.5-14.5); Red Blood Cell (RBC) Count 4.89 10x6/uL (4.32-5.72); White Blood Cell (WBC) Count 8.5 10x3/uL (3.5-10.5)
[~2022-02-10 12:06] MED LIST: Heparin 1,000 UNITS/ML VIAL ONE
[2022-02-10] MEDS ORDERED: Morphine 4 MG/ML VIAL ONE (14:21)
[2022-02-10] MEDS ORDERED: fentaNYL Citrate/PF 100 MCG/2 ML SYRINGE ONE (15:07)
[2022-02-10] MEDS ORDERED: Rocuronium Bromide 10 MG/ML (10ML VIAL) ONE (15:10)
[2022-02-10] MEDS ORDERED: Phenylephrine 10 MG/ML VIAL ONE (15:10)
[2022-02-10] MEDS ORDERED: Lidocaine 1% PF 5 ML VIAL ONE (15:10)
[2022-02-10] MEDS ORDERED: PROPOFOL 200 MG/20 ML VIAL ONE (15:10)
[2022-02-10] MEDS ORDERED: ePHEDrine 50 MG/ML VIAL ONE (15:10)
[2022-02-10] MEDS ORDERED: Ondansetron PF 4 MG/2 ML Vial ONE (15:10)
[2022-02-10] MEDS ORDERED: Dexamethasone 20 MG/5 ML VIAL ONE (15:10)
[2022-02-10] MEDS ORDERED: Neomycin-Polymyxin 1 ML AMP ONE (15:34)
[2022-02-10] MEDS ORDERED: SUGAMMADEX SODIUM 200 MG/2 ML VIAL ONE (15:54)
[2022-02-10] MEDS ORDERED: Promethazine HCl 25 MG/ML VIAL IM PRN (16:10)
[2022-02-10] MEDS ORDERED: traMADol HCl 50 MG TAB PO PRN (16:10)
[2022-02-10] MEDS ORDERED: Bisacodyl 10 MG SUPP PR PRN (16:10)
[2022-02-10] MEDS ORDERED: HYDROcodone/Acetaminophen 5/325 mg Tablet PO PRN (16:10)
[2022-02-10] MEDS ORDERED: Acetaminophen 325 MG TAB PO PRN (16:10)
[2022-02-10] MEDS ORDERED: Ondansetron PF 4 MG/2 ML Vial SLOW IVP PRN (16:10)
[2022-02-10] MEDS ORDERED: Fentanyl 100 MCG/2 ML VIAL ONE ×2 (16:12→16:33)
[2022-02-10] MEDS ORDERED: Ketorolac Tromethamine 30 MG/ML VIAL ONE ×2 (16:14→17:56)
[2022-02-10] MEDS ORDERED: Communication Order-Pharmacy FS SCH (16:15)
[2022-02-10] MEDS: Ketorolac Tromethamine 30 MG/ML VIAL IVP SCH (19:11)
[2022-02-10] MEDS ORDERED: Cefepime 1 GM in Sodium Chloride 0.9% 100 ML IVPB SCH (20:00)
[2022-02-10] MEDS: Sodium Chloride 0.9% 1,000 ML IV SCH (20:00)
[2022-02-10] MEDS: HYDROcodone/Acetaminophen 5/325 mg Tablet PO PRN (20:46)
[2022-02-10] MEDS: Pregabalin 50 MG CAP PO SCH (20:47)
[2022-02-10] MEDS ORDERED: Vancomycin HCl 1.5 GM in Sodium Chloride 0.9% 250 ML 300 ML IVPB SCH (21:00)
[2022-02-10] MEDS ORDERED: VANCOMYCIN 1.75 GM/500 ML BAG 1.75 GM in Premix Bag 1 BAG IVPB SCH (21:00)
[2022-02-11] MEDS: Ketorolac Tromethamine 30 MG/ML VIAL IVP SCH ×4 (00:41→18:34)
[2022-02-11] MEDS: Sodium Chloride 0.9% 1,000 ML IV SCH ×3 (04:40→21:09)
[2022-02-11] MEDS: HYDROcodone/Acetaminophen 5/325 mg Tablet PO PRN ×4 (04:41→20:04)
[2022-02-11 05:29] LABS: #Monocytes 0.2 thou/uL (0.11-0.59); #Neutrophils 7.4 thou/uL (1.40-6.50); %Basophils 0.1 % (0.0-1.0); %Eosinophils 0.1 % (0.0-10.0); %Lymphocytes 11.1 % (21.0-51.0); %Monocytes 2.8 % (0.0-10.0); %Neutrophils 85.9 % (42.0-75.0); Hemoglobin 14.7 g/dL (14.0-18.0); Mean Corpuscular HGB CONC 33.5 g/dL (32.0-36.0); Mean Corpuscular Hemoglobin 31.7 pg (27.0-31.0); Mean Corpuscular Volume 94.7 fL (78.0-98.0); Mean Platelet Volume 6.6 fL (7.4-10.4); Platelet Count 274 thou/uL (130-400); RBC Distribution Width 12.2 % (11.5-14.5); Red Blood Cell (RBC) Count 4.63 mill/uL (4.70-6.10); White Blood Cell (WBC) Count 8.6 thou/uL (4.8-10.8)
[2022-02-11 05:51] LABS: ALT (SGPT) 27 U/L (8-55); AST (SGOT) 19 U/L (5-34); Albumin 4.1 g/dL (3.5-5.0); Alkaline Phosphatase 118 U/L (40-110); Anion Gap 17 mmol/L (10-20); BUN (Urea Nitrogen) 12 mg/dL (8.4-25.7); Bilirubin, Total 0.6 mg/dL (0.2-1.2); Calc. Creatinine Clearance 187 mL/min (70-130); Calcium 9.7 mg/dL (7.8-10.44); Carbon Dioxide 24 mmol/L (22-29); Chloride 102 mmol/L (98-107); Estimated GFR 107; Globulin 4.1 g/dL (2.4-3.5); Glucose 132 mg/dL (70-105); Potassium 4.1 mmol/L (3.5-5.1); Protein, Total 8.2 g/dL (6.0-8.3); Sodium 139 mmol/L (136-145)
[2022-02-11] MEDS: Cefepime 1 GM in Sodium Chloride 0.9% 100 ML IVPB SCH ×2 (09:31→20:04)
[2022-02-11] MEDS: Pregabalin 50 MG CAP PO SCH ×2 (09:32→20:04)
[2022-02-11] MEDS: Amlodipine 10 MG TAB PO SCH (09:33)
[2022-02-11] MEDS: Morphine 4 MG/ML VIAL SLOW IVP PRN (11:32)
[2022-02-11] MEDS: VANCOMYCIN 1.75 GM/500 ML BAG 1.75 GM in Premix Bag 1 BAG IVPB SCH ×2 (11:34→21:08)
[2022-02-12] MEDS: HYDROcodone/Acetaminophen 5/325 mg Tablet PO PRN ×4 (04:46→22:24)
[2022-02-12 05:51] LABS: #Lymphocytes 2.2 thou/uL (1.20-3.40); #Monocytes 0.6 thou/uL (0.11-0.59); #Neutrophils 5.9 thou/uL (1.40-6.50); %Eosinophils 0.5 % (0.0-10.0); %Lymphocytes 25.4 % (21.0-51.0); %Monocytes 7.3 % (0.0-10.0); %Neutrophils 66.7 % (42.0-75.0); Hemoglobin 12.8 g/dL (14.0-18.0); Mean Corpuscular HGB CONC 33.5 g/dL (32.0-36.0); Mean Corpuscular Hemoglobin 31.6 pg (27.0-31.0); Mean Corpuscular Volume 94.5 fL (78.0-98.0); Mean Platelet Volume 6.9 fL (7.4-10.4); Platelet Count 215 thou/uL (130-400); RBC Distribution Width 12.3 % (11.5-14.5); Red Blood Cell (RBC) Count 4.06 mill/uL (4.70-6.10); White Blood Cell (WBC) Count 8.8 thou/uL (4.8-10.8)
[2022-02-12] MEDS: Ketorolac Tromethamine 30 MG/ML VIAL IVP PRN ×2 (06:23→14:27)
[2022-02-12] MEDS: Cefepime 1 GM in Sodium Chloride 0.9% 100 ML IVPB SCH ×2 (07:44→20:42)
[2022-02-12] MEDS: Morphine 4 MG/ML VIAL SLOW IVP PRN ×2 (07:45→19:43)
[2022-02-12] MEDS: Amlodipine 10 MG TAB PO SCH (07:46)
[2022-02-12] MEDS: Pregabalin 50 MG CAP PO SCH ×2 (07:46→20:43)
[2022-02-12 08:23] LABS: Vancomycin, Trough 12.5 ug/mL
[2022-02-12] MEDS: VANCOMYCIN 1.75 GM/500 ML BAG 1.75 GM in Premix Bag 1 BAG IVPB SCH ×2 (11:17→21:52)
[2022-02-12] MEDS: Sodium Chloride 0.9% 1,000 ML IV SCH ×2 (11:21→17:48)
[2022-02-13] MEDS: Morphine 4 MG/ML VIAL SLOW IVP PRN (00:45)
[2022-02-13] MEDS: Sodium Chloride 0.9% 1,000 ML IV SCH ×2 (04:32→16:52)
[2022-02-13] MEDS: HYDROcodone/Acetaminophen 5/325 mg Tablet PO PRN ×5 (05:57→21:02)
[2022-02-13] MEDS: Pregabalin 50 MG CAP PO SCH ×2 (08:48→21:03)
[2022-02-13] MEDS: Amlodipine 10 MG TAB PO SCH (08:50)
[2022-02-13] MEDS: Cefepime 1 GM in Sodium Chloride 0.9% 100 ML IVPB SCH (08:51)
[2022-02-13] MEDS: Docusate 100 MG CAP PO SCH ×2 (08:51→21:03)
[2022-02-13] MEDS: VANCOMYCIN 2 GRAM/500 ML BAG 2 GM in Premix Bag 1 BAG IVPB SCH (18:43)
[2022-02-13] MEDS: Ketorolac Tromethamine 30 MG/ML VIAL IVP PRN (23:59)
[2022-02-14] MEDS: Morphine 4 MG/ML VIAL SLOW IVP PRN (04:22)
[2022-02-14] MEDS: HYDROcodone/Acetaminophen 5/325 mg Tablet PO PRN ×4 (04:22→20:19)
[2022-02-14] MEDS: Ketorolac Tromethamine 30 MG/ML VIAL IVP PRN ×2 (05:59→12:18)
[2022-02-14] MEDS: VANCOMYCIN 2 GRAM/500 ML BAG 2 GM in Premix Bag 1 BAG IVPB SCH ×2 (05:59→20:19)
[2022-02-14] MEDS: Sodium Chloride 0.9% 1,000 ML IV SCH ×3 (06:17→20:20)
[2022-02-14 06:20] VITALS: BMI 36.8
[2022-02-14] MEDS: Docusate 100 MG CAP PO SCH ×2 (09:03→20:19)
[2022-02-14] MEDS: Amlodipine 10 MG TAB PO SCH (09:03)
[2022-02-14] MEDS: Pregabalin 50 MG CAP PO SCH ×2 (09:04→20:19)
[2022-02-14 17:35] LABS: Vancomycin, Trough 13.8 ug/mL
[2022-02-15] MEDS: HYDROcodone/Acetaminophen 5/325 mg Tablet PO PRN ×3 (01:11→14:43)
[2022-02-15] MEDS: Ketorolac Tromethamine 30 MG/ML VIAL IVP PRN ×2 (03:07→10:05)
[2022-02-15] MEDS: VANCOMYCIN 2 GRAM/500 ML BAG 2 GM in Premix Bag 1 BAG IVPB SCH (05:16)
[2022-02-15] MEDS: Sodium Chloride 0.9% 1,000 ML IV SCH (06:46)
[2022-02-15] MEDS: Amlodipine 10 MG TAB PO SCH (10:05)
[2022-02-15] MEDS: Pregabalin 50 MG CAP PO SCH (10:05)
[2022-02-15] MEDS: Docusate 100 MG CAP PO SCH (10:06)
[2022-02-15 15:57] VITALS: BP 146/90; TEMP 97.8
== END 2022-02-15 16:51 | disposition home or self-care (01) | DRG 497 ==
LOC: SJX 12:06 → SURG A 16:10 → INTOOBSV 16:10 → OBSVTOIN 02-12 19:27
PROVIDERS: ADMIT Orthopaedic Surgery; ATTEND Orthopaedic Surgery
PROC: 0PB90ZZ Excision of Right Clavicle, Open Approach (ICD-10-PCS; principal; 2022-02-10)
PROC: 0PP904Z Removal of Internal Fixation Device from Right Clavicle, Open Approach (ICD-10-PCS; 2022-02-10)
PROC: 02HV33Z Insertion of Infusion Device into Superior Vena Cava, Percutaneous Approach (ICD-10-PCS; 2022-02-14)
PROC: B5181ZA Fluoroscopy of Superior Vena Cava using Low Osmolar Contrast, Guidance (ICD-10-PCS; 2022-02-14)
PROC: B548ZZA Ultrasonography of Superior Vena Cava, Guidance (ICD-10-PCS; 2022-02-14)
DX: T84.7XXA Infection and inflammatory reaction due to other internal orthopedic prosthetic devices, implants and grafts, initial encounter (principal); I10 Essential (primary) hypertension; E78.5 Hyperlipidemia, unspecified; I25.10 Atherosclerotic heart disease of native coronary artery without angina pectoris; Y83.8 Other surgical procedures as the cause of abnormal reaction of the patient, or of later complication, without mention of misadventure at the time of the procedure; Z98.890 Other specified postprocedural states
CPT/HCPCS: 36415; 36569; 80053; 80202; 82565; 85025; 85027; 85652; 86140; 87070; 87077; 87186; 87205; 87811; 96374; 96375; 96376; 97139; C1751; G0378; J0692; J1100; J1644; J1885; J2270; J2370; J2405; J2704; J3010; J3370; J3490

== ENCOUNTER 2022-02-23 12:30 | Outpatient (CLI) | payer OTHER | END 2022-02-23 12:31 | disposition home or self-care (01) | LOC: LABBT 12:30 | PROVIDERS: ATTEND Orthopaedic Surgery | DX: Z20.822 Contact with and (suspected) exposure to COVID-19 (principal) | CPT/HCPCS: 87811 ==

== ENCOUNTER 2022-02-25 09:14 | Day surgery (SDC) | payer OTHER ==
[2022-02-24 12:16] VITALS: BMI 36.6
[2022-02-25 11:11] LABS: #Eosinphils 0.1 thou/uL (0.0-0.7); #Lymphocytes 1.9 thou/uL (1.20-3.40); #Monocytes 0.5 thou/uL (0.11-0.59); #Neutrophils 5.2 thou/uL (1.40-6.50); %Basophils 0.6 % (0.0-1.0); %Eosinophils 1.6 % (0.0-10.0); %Lymphocytes 24.4 % (21.0-51.0); %Monocytes 6.5 % (0.0-10.0); %Neutrophils 66.9 % (42.0-75.0); Mean Corpuscular HGB CONC 34.4 g/dL (32.0-36.0); Mean Corpuscular Hemoglobin 31.4 pg (27.0-31.0); Mean Corpuscular Volume 91.3 fL (78.0-98.0); Mean Platelet Volume 6.5 fL (7.4-10.4); Platelet Count 197 thou/uL (130-400); RBC Distribution Width 12.1 % (11.5-14.5); Red Blood Cell (RBC) Count 4.45 mill/uL (4.70-6.10); White Blood Cell (WBC) Count 7.7 thou/uL (4.8-10.8)
[2022-02-25] MEDS ORDERED: Morphine 2 MG/ML VIAL ONE (11:16)
[2022-02-25 11:34] LABS: Anion Gap 11 mmol/L (10-20); BUN (Urea Nitrogen) 8 mg/dL (8.4-25.7); CK (CPK) 43 U/L (30-200); Calc. Creatinine Clearance 199 mL/min (70-130); Calcium 9.3 mg/dL (7.8-10.44); Carbon Dioxide 30 mmol/L (22-29); Chloride 102 mmol/L (98-107); Estimated GFR 109; Glucose 85 mg/dL (70-105); Potassium 3.8 mmol/L (3.5-5.1); Sodium 139 mmol/L (136-145)
[2022-02-25] MEDS ORDERED: fentaNYL Citrate/PF 100 MCG/2 ML SYRINGE ONE (12:16)
[2022-02-25] MEDS ORDERED: CEFAZOLIN 2 GM VIAL ONE (12:25)
[2022-02-25] MEDS ORDERED: Sodium Chloride 0.9% 100 ML ONE (12:25)
[2022-02-25] MEDS ORDERED: Ondansetron PF 4 MG/2 ML Vial ONE (12:35)
[2022-02-25] MEDS ORDERED: PROPOFOL 200 MG/20 ML VIAL ONE (12:35)
[2022-02-25] MEDS ORDERED: Ketorolac Tromethamine 30 MG/ML VIAL ONE (12:35)
[2022-02-25] MEDS ORDERED: Rocuronium Bromide 10 MG/ML (10ML VIAL) ONE (12:35)
[2022-02-25] MEDS ORDERED: Phenylephrine 10 MG/ML VIAL ONE (12:35)
[2022-02-25] MEDS ORDERED: Dexamethasone 20 MG/5 ML VIAL ONE (12:35)
[2022-02-25] MEDS ORDERED: Glycopyrrolate 0.2 MG/ML 5 ML SYRINGE ONE (12:35)
[2022-02-25] MEDS ORDERED: Fentanyl 100 MCG/2 ML VIAL ONE ×4 (14:07→15:35)
[2022-02-25] MEDS ORDERED: HYDROcodone/Acetaminophen 5/325 mg Tablet ONE (14:42)
[2022-02-25] MEDS ORDERED: hydrALAZINE 20 MG/ML VIAL ONE (14:56)
[2022-02-25] MEDS ORDERED: Morphine 4 MG/ML VIAL ONE (14:56)
== END 2022-02-25 14:35 | disposition home or self-care (01) ==
LOC: SDC 09:14
PROVIDERS: ATTEND Orthopaedic Surgery
PROC: 0PS904Z Reposition Right Clavicle with Internal Fixation Device, Open Approach (ICD-10-PCS; principal; 2022-02-25)
DX: S42.021A Displaced fracture of shaft of right clavicle, initial encounter for closed fracture (principal); T81.49XA Infection following a procedure, other surgical site, initial encounter; I10 Essential (primary) hypertension; I25.10 Atherosclerotic heart disease of native coronary artery without angina pectoris; E78.5 Hyperlipidemia, unspecified; Z79.899 Other long term (current) drug therapy; V29.9XXA Motorcycle rider (driver) (passenger) injured in unspecified traffic accident, initial encounter
CPT/HCPCS: 36415; 76000; 80048; 82550; 85025; 86140; J0360; J0690; J1642; J2270; J3010; J3490